=== PATIENT | female | born 1975 | race Caucasian/White ===

== ENCOUNTER → 2023-03-05 | Outpatient (CLI) | payer OTHER, SELFPAY ==
[2023-03-05 08:37] LABS: Absolute Lymphocyte Count 1.88 X10^3/uL (0.83-4.51); Absolute Neutrophil Count 2.2 X10^3/uL (2.0-7.7); Basophil# 0.05 X10^3/uL; Eosinophil# 0.26 X10^3/uL; Eosinophils% 5.3 % (0-5); Hematocrit 36.6 % (37-47); Hemoglobin 11.8 g/dL (12.0-15.0); Lymphocyte # 1.88 X10^3/ul (0.83-4.51); Lymphocyte % 38.6 % (19-41); Mean Corp Hgb Conc 32.2 g/dL (32-36); Mean Corpuscular Volume 89.9 fL (81-99); Mean Platelet Vol. 9.5 fl (6.2-12.0); Monocyte# 0.49 X10^3/uL; Monocyte% 10.1 % (0-10); NRBC Flagged by Analyzer 0 % (0-5); Neutrophil # 2.19 X10^3/uL (2.7-7.7); Platelet Count 329 K/mm3 (150-450); RBC Distribution Width CV 13.4 % (11.6-14.6); RBC Distribution Width SD 44.4 fl (35.1-43.9); Red Blood Count 4.07 M/mm3 (4.2-5.4); White Blood Count 4.9 K/mm3 (4.4-11.0)
[2023-03-05 09:09] LABS: Hemoglobin A1c 5.4 % (3.8-5.6)
[2023-03-05 09:15] LABS: Vitamin B12 370 pg/mL (211-911); Vitamin D,25 Hydroxy 35.1 ng/mL
[2023-03-05 09:20] LABS: ALB/GLOB Ratio 0.8 RATIO (0.9-2.4); AST(SGOT) 17 U/L (15-37); Alanine Aminotransfer ALT/SGPT 27 U/L (13-56); Alkaline Phosphatase 40 U/L (45-117); Anion Gap 6 (5-15); BUN 10 mg/dL (7-18); BUN/Creat Ratio 10.4 RATIO (10-20); Calcium,Total 8.7 mg/dL (8.5-10.1); Chloride 107 mmol/L (98-107); Cholesterol 199 mg/dL (200); Creatinine, Serum 0.97 mg/dL (0.55-1.02); EST Glomerular Filtration Rate 65 mL/min (>60); Est Glom Filt Rate - Afr Amer 79 mL/min (>60); Free T3 2.2 pg/mL (2.18-3.98); Globulin 3.8 g/dL (2.2-4.2); Glucose 89 mg/dL (74-106); High Density Lipoprotein 84 mg/dL; Potassium 3.8 mmol/L (3.5-5.1); Protein, Total 6.8 g/dL (6.4-8.2); Sodium Level 141 mmol/L (136-145); T4 Free Direct 0.85 ng/dL (0.76-1.46); Triglycerides 138 mg/dL; Very Low Density Lipoprotein 28 mg/dL (5-40)
[2023-03-09 11:07] LABS: Testosterone, % Free 0.52 % (0.50-2.80); Testosterone, Free 0.03 ng/dL (0.10-0.85); Testosterone, Total 6 ng/dL (4-50)
== END | disposition home or self-care (01) ==
PROVIDERS: PCP Family Medicine; Referring Provider Family Medicine; Visit Provider Family Medicine
DX: Z01.89 Encounter for other specified special examinations (principal)
CPT/HCPCS: 36415; 80053; 80061; 82306; 82607; 83036; 84402; 84403; 84439; 84443; 84481; 85025

== ENCOUNTER → 2024-01-14 | Outpatient (CLI) | payer OTHER, SELFPAY ==
--- NOTE | 2024-01-14 16:20 | BI_ITS ---
MAMMOGRAPHY - BILATERAL SCREENING REASON FOR EXAM: Female, 48 years old. Routine annual screening examination. PERTINENT HISTORY: Non-contributory. TECHNIQUE: Digital bilateral breast gold (3D mammographic acquisition) in the CC and MLO projections. 2-D mediolateral oblique (MLO) and craniocaudad (CC) views of both breasts were obtained. CAD: Full Field Digital Mammography with Computer Added Detection was performed. COMPARISON: Comparison is made with prior outside examination dated November 01, 2021. FINDINGS: Breast Composition: The breasts are heterogeneously dense, which may obscure small masses. There are no dominant masses or suspicious calcifications. No other significant abnormalities are identified. There has been no significant change since the prior study. BI/SCRN MAMM (CAD)W/GOLD BILAT IMPRESSION: Stable bilateral screening mammogram. Yearly follow-up mammogram recommended. (A) ASSESSMENT CATEGORY: BIRADS Category 1: Negative. A letter regarding these results will be sent to the patient by the facility within 30 days. Approximately 10% of breast cancers are not detected by mammography. A normal mammogram should not delay biopsy of a clinically suspicious abnormality. [id number] Electronically Signed: Feliz Bazan MD at 11:00 EDT ,
== END | disposition home or self-care (01) ==
LOC: OPBI 16:19
PROVIDERS: PCP Family Medicine; Referring Provider Family Medicine; Visit Provider Family Medicine
DX: Z12.31 Encounter for screening mammogram for malignant neoplasm of breast (principal)
CPT/HCPCS: 77063; 77067

== ENCOUNTER → 2024-05-20 | Outpatient (CLI) | payer OTHER, SELFPAY ==
[2024-05-20 09:24] LABS: Hemoglobin 11.2 g/dL (12.0-15.0); Mean Corp Hgb Conc 31.1 g/dL (32-36); Mean Corpuscular Hgb 27.4 pg (27.0-32.0); Mean Platelet Vol. 10.3 fl (6.2-12.0); Platelet Count 310 K/mm3 (150-450); RBC Distribution Width CV 13.2 % (11.6-14.6); RBC Distribution Width SD 42.2 fl (35.1-43.9); Red Blood Count 4.09 M/mm3 (4.2-5.4); White Blood Count 5.2 K/mm3 (4.4-11.0)
[2024-05-20 09:57] LABS: Hemoglobin A1c 5.7 % (3.8-5.6)
[2024-05-20 09:59] LABS: Vitamin B12 1004 pg/mL (211-911); Vitamin D,25 Hydroxy 13.7 ng/mL
[2024-05-20 11:40] LABS: ALB/GLOB Ratio 0.9 RATIO (0.9-2.4); AST(SGOT) 30 U/L (15-37); Alanine Aminotransfer ALT/SGPT 51 U/L (13-56); Albumin, Serum 3.3 g/dL (3.2-5.0); Alkaline Phosphatase 56 U/L (45-117); Anion Gap 5 (5-15); BUN 9 mg/dL (7-18); Calcium,Total 8.9 mg/dL (8.5-10.1); Chloride 106 mmol/L (98-107); Cholesterol 172 mg/dL (200); EST Glomerular Filtration Rate 71 mL/min (>60); Est Glom Filt Rate - Afr Amer 86 mL/min (>60); Estradiol 361.4 pg/mL; Ferritin 7 ng/mL (8-252); Free T3 2.5 pg/mL (2.18-3.98); Globulin 3.5 g/dL (2.2-4.2); Glucose 92 mg/dL (74-106); High Density Lipoprotein 77 mg/dL; Iron 47 ug/dL (50-170); Iron Binding Capacity,Total 402 ug/dL (250-450); Protein, Total 6.8 g/dL (6.4-8.2); Sodium Level 138 mmol/L (136-145); T4 Free Direct 0.74 ng/dL (0.76-1.46); T4 Total, Thyroxin 6.6 ug/dL (4.8-13.9); Triglycerides 81 mg/dL; Very Low Density Lipoprotein 16 mg/dL (5-40)
[2024-05-25 14:08] LABS: Testosterone, Free 0.63 ng/dL (0.10-0.85); Testosterone, Total 33 ng/dL (4-50)
== END | disposition home or self-care (01) ==
LOC: LAB 08:17
PROVIDERS: PCP Family Medicine; Referring Provider Family Medicine; Visit Provider Family Medicine
DX: N95.9 Unspecified menopausal and perimenopausal disorder (principal)

== ENCOUNTER → 2024-08-30 | Outpatient (CLI) | payer OTHER, SELFPAY ==
[2024-09-01 11:08] LABS: HPV APTIMA, High Risk Negative (Negative)
== END | disposition home or self-care (01) ==
LOC: LABSPEC 08:53
PROVIDERS: PCP Family Medicine; Visit Provider Family Medicine
DX: Z12.4 Encounter for screening for malignant neoplasm of cervix (principal)
CPT/HCPCS: 87624; 88175; G0145

== ENCOUNTER → 2025-04-28 | Outpatient (CLI) | payer OTHER, SELFPAY ==
--- NOTE | 2025-04-28 11:58 | BI_ITS ---
EXAM: SCRN MAMM (CAD)W/GOLD BILAT DATE: 04/28/2025 CLINICAL HISTORY: F, Age 49 y/o , SCREEN TECHNIQUE: Procedure Code: [id number] Modality: MG Procedure: SCRN MAMM (CAD)W/GOLD BILAT COMPARISON: Prior exam(s) were compared FINDINGS: TISSUE DENSITY: The breasts are heterogeneously dense, which may obscure small masses. Bilateral Breast Mammographic Findings: No significant masses, calcifications or other abnormalities are identified. BI/SCRN MAMM (CAD)W/GOLD BILAT IMPRESSION: No mammographic evidence of malignancy. OVERALL FINAL ASSESSMENT BI-RADS 1: NEGATIVE. RECOMMENDATION: Routine annual follow-up in 1 Year Additional Recommendation none A letter with findings and recommendations will be mailed to the patient. Reading Location: [id number]
--- OUTSIDE RECORDS SUMMARY | 2025-04-28 12:11 | XMS RPT_ITS | CCD ---
Author Organization [facility] Care Team Providers Care Is Consultant Name Role Phone Marj Grier Ellen Primary Care Provider Labor, Richelle Primary Care Unavailable Labor, Richelle Attending Unavailable Labor, Richelle Referring Unavailable Labor, Richelle Primary Care Unavailable Labor, Richelle Attending Unavailable Labor, Richelle Referring Unavailable Vane, Brooke Primary Care Unavailable Vane, Brooke Attending Unavailable Allergies Allergy Classification Reported Allergen(s) Allergy Type Date of Onset Reaction(s) Facility (3 sources) Aspirin Drug Allergy 10-17-2019 Shortness of Breath [facility] (1 source) Penicillins Drug Allergy 10-17-2019 Shortness of Breath [facility] (2 sources) Penicillins Drug Allergy 10-17-2019 Shortness of Breath [facility] Medications Completed/Discontinued Medications Medication Drug Class(es) Dates Sig (Normalized) Sig (Original) citalopram 20 mg oral tablet (3 sources) Serotonin Reuptake Inhibitor Start: 08-22-2019 citalopram (CELEXA) 20 mg tablet drospirenone / Ethinyl Estradiol (3 sources) Progestin, Estrogen Start: 08-09-2019 GIGARETH, 28, 3-0.02 mg per tablet Problems Problem Classification Problem Date Documented Date Episodic/Chronic Menopausal disorders (1 source) Unspecified menopausal and perimenopausal disorder; Translations: [Unspecified menopausal and perimenopausal disorder] Onset: 06-08-2024 Chronic Other screening for suspected conditions (not mental disorders or infectious disease) (2 sources) Encounter for screening for malignant neoplasm of cervix; Translations: [Encounter for screening mammogram for malignant neoplasm of breast] Onset: 02-03-2024 Episodic Results Test Name Value Interpretation Reference Range Facil ity PAP IG HPV APTIMA 16/18,45on 09-01-2024 ADEQ Comment Normal . [facility] Comment on above: Order Comment: Speci men Comment: [id number] Comment: No. of containers..01 ThinPrep Vial Result Comment: Sati sfactory for evaluation. Endocervical and/or squamous metaplastic cells (endocervical component) are present. Performed By: #### L 506.0400, L501.9520, L506.1000, L3300.1750, L100.0500, L500.4100, L501.9985, L501.9310, L500.4050, L501.97535, L503.6075, L3100.5060, L3100.5310, L503.6150, L503.0105, L503.6550 #### [facility] [address] [place], [address] COMM [address] Normal [address] [facility] Comment on above: Order Comment: Speci men Comment: [id number] Comment: No. of containers..01 ThinPrep Vial Performed By: #### L 506.0400, L501.9520, L506.1000, L3300.1750, L100.0500, L500.4100, L501.9985, L501.9310, L500.4050, L501.27225, L503.6075, L3100.5060, L3100.5310, L503.6150, L503.0105, L503.6550 #### [facility] [address] [place], [address] COMMENT Comment Normal . [facility] Comment on above: Order Comment: Speci men Comment: [id number] Comment: No. of containers..01 ThinPrep Vial Result Comment: This liquid based ThinPrep(R) pap test was screened with the use of an image guided system. Performed By: #### L 506.0400, L501.9520, L506.1000, L3300.1750, L100.0500, L500.4100, L501.9985, L501.9310, L500.4050, L501.28544, L503.6075, L3100.5060, L3100.5310, L503.6150, L503.0105, L503.6550 #### [facility] [address] [place], [place], [id number] DIAG Comment Normal . [facility] Comment on above: Order Comment: Speci men Comment: [id number] Comment: No. of containers..01 ThinPrep Vial Result Comment: NEGA TIVE FOR INTRAEPITHELIAL LESION OR MALIGNANCY. FUNGAL ORGANISMS MORPHOLOGICALLY CONSISTENT WITH SETH SPECIES ARE PRESENT. Performed By: #### L 506.0400, L501.9520, L506.1000, L3300.1750, L100.0500, L500.4100, L501.9985, L501.9310, L500.4050, L501.35701, L503.6075, L3100.5060, L3100.5310, L503.6150, L503.0105, L503.6550 #### [facility] [address] [place], [place], [id number] HPV APTIMA, HR Negative Normal Negative [facility] Comment on above: Order Comment: Speci men Comment: [id number] Comment: No. of containers..01 ThinPrep Vial Result Comment: This nucleic acid amplification test detects fourteen high- risk HPV types (16,18,31,33,35,39,45,51,52,56,58,59,66,68) without differentiation. Performed By: #### L 506.0400, L501.9520, L506.1000, L3300.1750, L100.0500, L500.4100, L501.9985, L501.9310, L500.4050, L501.49087, L503.6075, L3100.5060, L3100.5310, L503.6150, L503.0105, L503.6550 #### [facility] [address] [place], [place], [id number] HPV Noa Rfx Comment Normal . [facility] Comment on above: Order Comment: Speci men Comment: [id number] Comment: No. of containers..01 ThinPrep Vial Result Comment: Crit melany not met, HPV Genotype not performed. Performed at: WB - [facility] [id number] Business Management Specialist: Sarai Luque MD, Phone: [phone] Performed at: =G - [facility] [address] [id number] Business Management Specialist: Sarai Luque MD, Phone: [phone] Performed By: #### L 506.0400, L501.9520, L506.1000, L3300.1750, L100.0500, L500.4100, L501.9985, L501.9310, L500.4050, L501.88775, L503.6075, L3100.5060, L3100.5310, L503.6150, L503.0105, L503.6550 #### [facility] [address] [place], [place], [id number] PAPSMR Comment Normal . [facility] Comment on above: Order Comment: Speci men Comment: [id number] Comment: No. of containers..01 ThinPrep Vial Result Comment: The Pap smear is a screening test designed to aid in the detection of premalignant and malignant conditions of the uterine cervix. It is not a diagnostic procedure and should not be used as the sole means of detecting cervical cancer. Both false-positive and false-negative reports do occur. Performed By: #### L 506.0400, L501.9520, L506.1000, L3300.1750, L100.0500, L500.4100, L501.9985, L501.9310, L500.4050, L501.65990, L503.6075, L3100.5060, L3100.5310, L503.6150, L503.0105, L503.6550 #### [facility] [address] [place], [place], [id number] PERFORM Comment Normal . [facility] Comment on above: Order Comment: Speci men Comment: [id number] Comment: No. of containers..01 ThinPrep Vial Result Comment: Candy Hilliard, Process Lead (ASCP) Performed By: #### L 506.0400, L501.9520, L506.1000, L3300.1750, L100.0500, L500.4100, L501.9985, L501.9310, L500.4050, L501.91955, L503.6075, L3100.5060, L3100.5310, L503.6150, L503.0105, L503.6550 #### [facility] [address] [place], [address] Sex Hormone-binding Globulin on 05-25-2024 SHBG 105.0 nmol/L Normal 24.6-122.0 [facility] Comment on above: Order Comment: YCMP WAS WHAT WAS ORDERED NOT BMP Result Comment: Perf ormed at: - [facility] [id number] Business Management Specialist: Chay Morris PhD, Phone: [phone] Performed at: - [facility] [id number] Business Management Specialist: Dru Lipscomb MD, Phone: [phone] Performed By: #### L 506.0400, L501.9520, L506.1000, L3300.1750, L100.0500, L500.4100, L501.9985, L501.9310, L500.4050, L501.59158, L503.6075, L3100.5060, L3100.5310, L503.6150, L503.0105, L503.6550 #### [facility] [address] [place], [address] Testosterone, Total / Freeon 05-25-2024 TESTOSTER,FREE 0.63 ng/dL Normal 0.10-0.85 [facility] Comment on above: Order Comment: YCMP WAS WHAT WAS ORDERED NOT BMP Performed By: #### L 506.0400, L501.9520, L506.1000, L3300.1750, L100.0500, L500.4100, L501.9985, L501.9310, L500.4050, L501.53362, L503.6075, L3100.5060, L3100.5310, L503.6150, L503.0105, L503.6550 #### [facility] [address] [facility] [place], [place], [phone] (353) TESTOSTER,TOTAL 33 ng/dL Normal 4-50 [facility] Comment on above: Order Comment: YCMP WAS WHAT WAS ORDERED NOT BMP Performed By: #### L 506.0400, L501.9520, L506.1000, L3300.1750, L100.0500, L500.4100, L501.9985, L501.9310, L500.4050, L501.90014, L503.6075, L3100.5060, L3100.5310, L503.6150, L503.0105, L503.6550 #### [facility] [address] [facility] [place], [place], [phone] (638) TESTOSTERONE,%F 1.90 Normal 0.50-2.80 [facility] Comment on above: Order Comment: YCMP WAS WHAT WAS ORDERED NOT BMP Performed By: #### L 506.0400, L501.9520, L506.1000, L3300.1750, L100.0500, L500.4100, L501.9985, L501.9310, L500.4050, L501.57091, L503.6075, L3100.5060, L3100.5310, L503.6150, L503.0105, L503.6550 #### [facility] [address] [facility] [place], [place], [id number] CBC-Complete [facility] Erythrocyte distribution width (RBC) [Ratio] 13.2 % Normal 11.6-14.6 [facility] Comment on above: Performed By: #### L 506.0400, L501.9520, L506.1000, L3300.1750, L100.0500, L500.4100, L501.9985, L501.9310, L500.4050, L501.07247, L503.6075, L3100.5060, L3100.5310, L503.6150, L503.0105, L503.6550 #### [facility] [address] [place], [place], [id number] Hematocrit (Bld) [Volume fraction] 36.0 % Low 37-47 [facility] Comment on above: Performed By: #### L 506.0400, L501.9520, L506.1000, L3300.1750, L100.0500, L500.4100, L501.9985, L501.9310, L500.4050, L501.54862, L503.6075, L3100.5060, L3100.5310, L503.6150, L503.0105, L503.6550 #### [facility] [address] [place], [place], [phone] Hemoglobin (Bld) [Mass/Vol] 11.2 g/dL Low 12.0-15.0 [facility] Comment on above: Performed By: #### L 506.0400, L501.9520, L506.1000, L3300.1750, L100.0500, L500.4100, L501.9985, L501.9310, L500.4050, L501.36469, L503.6075, L3100.5060, L3100.5310, L503.6150, L503.0105, L503.6550 #### [facility] [address] [facility]. [place], [place], [phone] MCH (RBC) [Entitic mass] 27.4 pg Normal 27.0-32.0 [facility] Comment on above: Performed By: #### L 506.0400, L501.9520, L506.1000, L3300.1750, L100.0500, L500.4100, L501.9985, L501.9310, L500.4050, L501.08842, L503.6075, L3100.5060, L3100.5310, L503.6150, L503.0105, L503.6550 #### [facility] [address] [place], [address] MCHC (RBC) [Mass/Vol] 31.1 g/dL Low 32-36 [facility] Comment on above: Performed By: #### L 506.0400, L501.9520, L506.1000, L3300.1750, L100.0500, L500.4100, L501.9985, L501.9310, L500.4050, L501.87292, L503.6075, L3100.5060, L3100.5310, L503.6150, L503.0105, L503.6550 #### [facility] [address] [place], [place], [phone] MCV (RBC) [Entitic vol] 88.0 fL Normal 81-99 [facility] Comment on above: Performed By: #### L 506.0400, L501.9520, L506.1000, L3300.1750, L100.0500, L500.4100, L501.9985, L501.9310, L500.4050, L501.63598, L503.6075, L3100.5060, L3100.5310, L503.6150, L503.0105, L503.6550 #### [facility] [address] [place], [address] Platelet mean volume (Bld) [Entitic vol] 10.3 fL Normal 6.2-12.0 [facility] Comment on above: Performed By: #### L 506.0400, L501.9520, L506.1000, L3300.1750, L100.0500, L500.4100, L501.9985, L501.9310, L500.4050, L501.16920, L503.6075, L3100.5060, L3100.5310, L503.6150, L503.0105, L503.6550 #### [facility] [address] [place], [address] Platelets (Bld) [#/Vol] 310 10*3/uL Normal 150-450 [facility] Comment on above: Performed By: #### L 506.0400, L501.9520, L506.1000, L3300.1750, L100.0500, L500.4100, L501.9985, L501.9310, L500.4050, L501.36802, L503.6075, L3100.5060, L3100.5310, L503.6150, L503.0105, L503.6550 #### [facility] [address] [place], [address] RBC (Bld) [#/Vol] 4.09 10*6/uL Low 4.2-5.4 [facility] Comment on above: Performed By: #### L 506.0400, L501.9520, L506.1000, L3300.1750, L100.0500, L500.4100, L501.9985, L501.9310, L500.4050, L501.38587, L503.6075, L3100.5060, L3100.5310, L503.6150, L503.0105, L503.6550 #### [facility] [address] [place], [address] RDW SD 42.2 fl Normal 35.1-43.9 [facility] Comment on above: Performed By: #### L 506.0400, L501.9520, L506.1000, L3300.1750, L100.0500, L500.4100, L501.9985, L501.9310, L500.4050, L501.03887, L503.6075, L3100.5060, L3100.5310, L503.6150, L503.0105, L503.6550 #### [facility] [address] [place], [place], [phone] WBC (Bld) [#/Vol] 5.2 10*3/uL Normal 4.4-11.0 [facility] Comment on above: Performed By: #### L 506.0400, L501.9520, L506.1000, L3300.1750, L100.0500, L500.4100, L501.9985, L501.9310, L500.4050, L501.08358, L503.6075, L3100.5060, L3100.5310, L503.6150, L503.0105, L503.6550 #### [facility] [address] [facility] [place], [address] Comprehensive Metabolic Prof ndon 05-20-2024 Albumin [Mass/Vol] 3.3 g/dL Normal 3.2-5.0 [facility] Comment on above: Order Comment: Y CMP WAS WHAT WAS ORDERED NOT BMP Performed By: #### L 506.0400, L501.9520, L506.1000, L3300.1750, L100.0500, L500.4100, L501.9985, L501.9310, L500.4050, L501.64662, L503.6075, L3100.5060, L3100.5310, L503.6150, L503.0105, L503.6550 #### [facility] [address] [facility] [place], [address] Albumin/Globulin [Mass ratio] 0.9 {ratio} Normal 0.9-2.4 [facility] Comment on above: Order Comment: Y CMP WAS WHAT WAS ORDERED NOT BMP Performed By: #### L 506.0400, L501.9520, L506.1000, L3300.1750, L100.0500, L500.4100, L501.9985, L501.9310, L500.4050, L501.15504, L503.6075, L3100.5060, L3100.5310, L503.6150, L503.0105, L503.6550 #### [facility] [address] [facility] [place], [place], [id number] ALK P 56 U/L Normal 45-117 [facility] Comment on above: Order Comment: Y CMP WAS WHAT WAS ORDERED NOT BMP Performed By: #### L 506.0400, L501.9520, L506.1000, L3300.1750, L100.0500, L500.4100, L501.9985, L501.9310, L500.4050, L501.86550, L503.6075, L3100.5060, L3100.5310, L503.6150, L503.0105, L503.6550 #### [facility] [address] [facility]. [place], [place], [id number] ALT [Catalytic activity/Vol] 51 U/L Normal 13-56 [facility] Comment on above: Order Comment: Y CMP WAS WHAT WAS ORDERED NOT BMP Performed By: #### L 506.0400, L501.9520, L506.1000, L3300.1750, L100.0500, L500.4100, L501.9985, L501.9310, L500.4050, L501.45478, L503.6075, L3100.5060, L3100.5310, L503.6150, L503.0105, L503.6550 #### [facility] [address] [facility]. [place], [place], [id number] AST [Catalytic activity/Vol] 30 U/L Normal 15-37 [facility] Comment on above: Order Comment: Y CMP WAS WHAT WAS ORDERED NOT BMP Performed By: #### L 506.0400, L501.9520, L506.1000, L3300.1750, L100.0500, L500.4100, L501.9985, L501.9310, L500.4050, L501.98246, L503.6075, L3100.5060, L3100.5310, L503.6150, L503.0105, L503.6550 #### [facility] [address] [place], [place], [phone] Bilirubin [Mass/Vol] 0.30 mg/dL Normal 0.20-1.00 [facility] Comment on above: Order Comment: Y CMP WAS WHAT WAS ORDERED NOT BMP Result Comment: For patients on eltrombopag therapy, use of Dimension [place] TBIL is not recommended. Performed By: #### L 506.0400, L501.9520, L506.1000, L3300.1750, L100.0500, L500.4100, L501.9985, L501.9310, L500.4050, L501.61015, L503.6075, L3100.5060, L3100.5310, L503.6150, L503.0105, L503.6550 #### [facility] [address] [place], [address] BUN/CRE 10.0 RATIO Normal 10-20 [facility] Comment on above: Order Comment: Y CMP WAS WHAT WAS ORDERED NOT BMP Performed By: #### L 506.0400, L501.9520, L506.1000, L3300.1750, L100.0500, L500.4100, L501.9985, L501.9310, L500.4050, L501.11275, L503.6075, L3100.5060, L3100.5310, L503.6150, L503.0105, L503.6550 #### [facility] [address] [place], [place], [phone] CA,Total 8.9 mg/dL Normal 8.5-10.1 [facility] Comment on above: Order Comment: Y CMP WAS WHAT WAS ORDERED NOT BMP Performed By: #### L 506.0400, L501.9520, L506.1000, L3300.1750, L100.0500, L500.4100, L501.9985, L501.9310, L500.4050, L501.52947, L503.6075, L3100.5060, L3100.5310, L503.6150, L503.0105, L503.6550 #### [facility] [address] [place], [place], [phone] (254) Chloride [Moles/Vol] 106 mmol/L Normal 98-107 [facility] Comment on above: Order Comment: Y CMP WAS WHAT WAS ORDERED NOT BMP Performed By: #### L 506.0400, L501.9520, L506.1000, L3300.1750, L100.0500, L500.4100, L501.9985, L501.9310, L500.4050, L501.63596, L503.6075, L3100.5060, L3100.5310, L503.6150, L503.0105, L503.6550 #### [facility] [address] [place], [place], [phone] (770) CO2 [Moles/Vol] 27.0 mmol/L Normal 21.0-32.0 [facility] Comment on above: Order Comment: Y CMP WAS WHAT WAS ORDERED NOT BMP Performed By: #### L 506.0400, L501.9520, L506.1000, L3300.1750, L100.0500, L500.4100, L501.9985, L501.9310, L500.4050, L501.96494, L503.6075, L3100.5060, L3100.5310, L503.6150, L503.0105, L503.6550 #### [facility] [address] [place], [place], [id number] Creatinine [Mass/Vol] 0.90 mg/dL Normal 0.55-1.02 [facility] Comment on above: Order Comment: Y CMP WAS WHAT WAS ORDERED NOT BMP Result Comment: The validity of the calculated GFR GFRAA in patients over 70 years has not been determined. Clinical correlation is essential. Performed By: #### L 506.0400, L501.9520, L506.1000, L3300.1750, L100.0500, L500.4100, L501.9985, L501.9310, L500.4050, L501.83193, L503.6075, L3100.5060, L3100.5310, L503.6150, L503.0105, L503.6550 #### [facility] [address] [place], [address] EST GFR - AA 86 mL/min Normal >60 [facility] Comment on above: Order Comment: Y CMP WAS WHAT WAS ORDERED NOT BMP Result Comment: Afri can Rwandan GFR Calc Performed By: #### L 506.0400, L501.9520, L506.1000, L3300.1750, L100.0500, L500.4100, L501.9985, L501.9310, L500.4050, L501.78729, L503.6075, L3100.5060, L3100.5310, L503.6150, L503.0105, L503.6550 #### [facility] [address] [place], [place], [id number] GAP 5 Normal 5-15 [facility] Comment on above: Order Comment: Y CMP WAS WHAT WAS ORDERED NOT BMP Performed By: #### L 506.0400, L501.9520, L506.1000, L3300.1750, L100.0500, L500.4100, L501.9985, L501.9310, L500.4050, L501.66428, L503.6075, L3100.5060, L3100.5310, L503.6150, L503.0105, L503.6550 #### [facility] [address] [place], [address] GFR/1.73 sq M.predicted among non-blacks MDRD (S/P/Bld) [Vol rate/Area] 71 mL/min/{1.73_m2} Normal >60 [facility] Comment on above: Order Comment: Y CMP WAS WHAT WAS ORDERED NOT BMP Result Comment: Non- GFR Calc Performed By: #### L 506.0400, L501.9520, L506.1000, L3300.1750, L100.0500, L500.4100, L501.9985, L501.9310, L500.4050, L501.42465, L503.6075, L3100.5060, L3100.5310, L503.6150, L503.0105, L503.6550 #### [facility] [address] [place], [address] Globulin (S) [Mass/Vol] 3.5 g/dL Normal 2.2-4.2 [facility] Comment on above: Order Comment: Y CMP WAS WHAT WAS ORDERED NOT BMP Performed By: #### L 506.0400, L501.9520, L506.1000, L3300.1750, L100.0500, L500.4100, L501.9985, L501.9310, L500.4050, L501.83835, L503.6075, L3100.5060, L3100.5310, L503.6150, L503.0105, L503.6550 #### [facility] [address] [place], [address] Glucose [Mass/Vol] 92 mg/dL Normal 74-106 [facility] Comment on above: Order Comment: Y CMP WAS WHAT WAS ORDERED NOT BMP Performed By: #### L 506.0400, L501.9520, L506.1000, L3300.1750, L100.0500, L500.4100, L501.9985, L501.9310, L500.4050, L501.51713, L503.6075, L3100.5060, L3100.5310, L503.6150, L503.0105, L503.6550 #### [facility] [address] [place], [address] Potassium [Moles/Vol] 4.0 mmol/L Normal 3.5-5.1 [facility] Comment on above: Order Comment: Y CMP WAS WHAT WAS ORDERED NOT BMP Performed By: #### L 506.0400, L501.9520, L506.1000, L3300.1750, L100.0500, L500.4100, L501.9985, L501.9310, L500.4050, L501.60914, L503.6075, L3100.5060, L3100.5310, L503.6150, L503.0105, L503.6550 #### [facility] [address] [place], [address] Sodium [Moles/Vol] 138 mmol/L Normal 136-145 [facility] Comment on above: Order Comment: Y CMP WAS WHAT WAS ORDERED NOT BMP Performed By: #### L 506.0400, L501.9520, L506.1000, L3300.1750, L100.0500, L500.4100, L501.9985, L501.9310, L500.4050, L501.40486, L503.6075, L3100.5060, L3100.5310, L503.6150, L503.0105, L503.6550 #### [facility] [address] [place], [address] T PROT 6.8 g/dL Normal 6.4-8.2 [facility] Comment on above: Order Comment: Y CMP WAS WHAT WAS ORDERED NOT BMP Performed By: #### L 506.0400, L501.9520, L506.1000, L3300.1750, L100.0500, L500.4100, L501.9985, L501.9310, L500.4050, L501.28811, L503.6075, L3100.5060, L3100.5310, L503.6150, L503.0105, L503.6550 #### [facility] [address] [place], [address] Urea nitrogen [Mass/Vol] 9 mg/dL Normal 7-18 [facility] Comment on above: Order Comment: Y CMP WAS WHAT WAS ORDERED NOT BMP Performed By: #### L 506.0400, L501.9520, L506.1000, L3300.1750, L100.0500, L500.4100, L501.9985, L501.9310, L500.4050, L501.44832, L503.6075, L3100.5060, L3100.5310, L503.6150, L503.0105, L503.6550 #### [facility] [address] [place], [address] Estradiolon 05-20-2024 ESTRADIOL 361.4 pg/mL Normal [facility] Comment on above: Order Comment: Y CMP WAS WHAT WAS ORDERED NOT BMP Result Comment: NORM AL REFERENCE RANGES FEMALE FOLLICULAR 21.4 - 164.8 pg/mL MID-CYCLE PEAK 49.9 - 367.2 pg/mL LUTEAL 40.2 - 259.0 pg/mL POST-MENOPAUSAL ON MHT <11.0 - 462.1 pg/mL NOT ON MHT <11.0 - 58.3 pg/mL MALE <11.0 - 52.5 pg/mL NOTE: [facility] HAS CONFIRMED THE DRUG FULVETRANT (FASLODEX) MAY CAUSE FALSELY ELEVATED ESTRADIOL RESULTS WHEN USING THIS TEST METHOD. IF PATIENT IS TAKING FULVESTRANT AN ALTERNATIVE METHOD SHOULD BE USED TO DETERMINE ESTRADIOL CONCENTRATION. Performed By: #### L 506.0400, L501.9520, L506.1000, L3300.1750, L100.0500, L500.4100, L501.9985, L501.9310, L500.4050, L501.93325, L503.6075, L3100.5060, L3100.5310, L503.6150, L503.0105, L503.6550 #### [facility] [address] [facility] [place], [address] Ferritinon 05-20-2024 Ferritin [Mass/Vol] 7 ng/mL Low 8-252 [facility] Comment on above: Order Comment: YCMP WAS WHAT WAS ORDERED NOT BMP Performed By: #### L 506.0400, L501.9520, L506.1000, L3300.1750, L100.0500, L500.4100, L501.9985, L501.9310, L500.4050, L501.34203, L503.6075, L3100.5060, L3100.5310, L503.6150, L503.0105, L503.6550 #### [facility] [address] [facility] [place], [address] Free T3on 05-20-2024 Free T3 [Mass/Vol] 2.5 pg/mL Normal 2.18-3.98 [facility] Comment on above: Order Comment: Y CMP WAS WHAT WAS ORDERED NOT BMP Performed By: #### L 506.0400, L501.9520, L506.1000, L3300.1750, L100.0500, L500.4100, L501.9985, L501.9310, L500.4050, L501.79474, L503.6075, L3100.5060, L3100.5310, L503.6150, L503.0105, L503.6550 #### [facility] [address] [place], [address] Hemoglobin A1con 05-20-2024 HbA1c (Bld) [Mass fraction] 5.7 % High 3.8-5.6 [facility] Comment on above: Result Comment: Norm al < 5.7 % Prediabetic 5.7 - 6.4 % Diabetic >or= 6.5 % Please note range changes. Performed By: #### L 506.0400, L501.9520, L506.1000, L3300.1750, L100.0500, L500.4100, L501.9985, L501.9310, L500.4050, L501.05970, L503.6075, L3100.5060, L3100.5310, L503.6150, L503.0105, L503.6550 #### [facility] [address] [place], [place], [id number] Ironon 05-20-2024 Iron [Mass/Vol] 47 ug/dL Low 50-170 [facility] Comment on above: Order Comment: YCMP WAS WHAT WAS ORDERED NOT BMP Performed By: #### L 506.0400, L501.9520, L506.1000, L3300.1750, L100.0500, L500.4100, L501.9985, L501.9310, L500.4050, L501.30647, L503.6075, L3100.5060, L3100.5310, L503.6150, L503.0105, L503.6550 #### [facility] [address] [place], [address] Iron Binding Capacity,Totalo n 05-20-2024 TIBC 402 ug/dL Normal 250-450 [facility] Comment on above: Order Comment: YCMP WAS WHAT WAS ORDERED NOT BMP Performed By: #### L 506.0400, L501.9520, L506.1000, L3300.1750, L100.0500, L500.4100, L501.9985, L501.9310, L500.4050, L501.13228, L503.6075, L3100.5060, L3100.5310, L503.6150, L503.0105, L503.6550 #### [facility] [address] [place], [address] Lipid Profileon 05-20-2024 Cholesterol [Mass/Vol] 172 mg/dL Normal 200 [facility] Comment on above: Order Comment: Y CMP WAS WHAT WAS ORDERED NOT BMP Result Comment: <200 mg/dL Desirable 200-240 mg/dL Borderline >240 mg/dL High Risk Performed By: #### L 506.0400, L501.9520, L506.1000, L3300.1750, L100.0500, L500.4100, L501.9985, L501.9310, L500.4050, L501.75286, L503.6075, L3100.5060, L3100.5310, L503.6150, L503.0105, L503.6550 #### [facility] [address] [place], [address] (187) Cholesterol in HDL [Mass/Vol] 77 mg/dL Normal [facility] Comment on above: Order Comment: Y CMP WAS WHAT WAS ORDERED NOT BMP Result Comment: The drugs N-Acetylcysteine and Metamizole may falsely depress this assay. Reference Range HDL <40 mg/dL Low HDL Cholesterol HDL >or= 60 mg/dL High HDL Cholesterol Performed By: #### L 506.0400, L501.9520, L506.1000, L3300.1750, L100.0500, L500.4100, L501.9985, L501.9310, L500.4050, L501.73924, L503.6075, L3100.5060, L3100.5310, L503.6150, L503.0105, L503.6550 #### [facility] [address] [place], [address] (821 Cholesterol in LDL [Mass/Vol] 79 mg/dL Normal 0-130 [facility] Comment on above: Order Comment: Y CMP WAS WHAT WAS ORDERED NOT BMP Performed By: #### L 506.0400, L501.9520, L506.1000, L3300.1750, L100.0500, L500.4100, L501.9985, L501.9310, L500.4050, L501.50008, L503.6075, L3100.5060, L3100.5310, L503.6150, L503.0105, L503.6550 #### [facility] [address] [place], [place], [id number] Cholesterol in VLDL [Mass/Vol] 16 mg/dL Normal 5-40 [facility] Comment on above: Order Comment: Y CMP WAS WHAT WAS ORDERED NOT BMP Performed By: #### L 506.0400, L501.9520, L506.1000, L3300.1750, L100.0500, L500.4100, L501.9985, L501.9310, L500.4050, L501.34331, L503.6075, L3100.5060, L3100.5310, L503.6150, L503.0105, L503.6550 #### [facility] [address] [place], [address] Triglyceride [Mass/Vol] 81 mg/dL Normal [facility] Comment on above: Order Comment: Y CMP WAS WHAT WAS ORDERED NOT BMP Result Comment: The drugs N-Acetylcysteine and Metamizole may falsely depress this assay. Serum Triglycerides Reference Interval Normal <150 mg/dL Borderline high 150 - 199 mg/dL High 200 - 499 mg/dL Very High > or = 500 mg/dL Performed By: #### L 506.0400, L501.9520, L506.1000, L3300.1750, L100.0500, L500.4100, L501.9985, L501.9310, L500.4050, L501.53531, L503.6075, L3100.5060, L3100.5310, L503.6150, L503.0105, L503.6550 #### [facility] [address] [place], [address] T4 Free Directon 05-20-2024 T4 FREE DIRECT 0.74 ng/dL Low 0.76-1.46 [facility] Comment on above: Order Comment: YCMP WAS WHAT WAS ORDERED NOT BMP Performed By: #### L 506.0400, L501.9520, L506.1000, L3300.1750, L100.0500, L500.4100, L501.9985, L501.9310, L500.4050, L501.37807, L503.6075, L3100.5060, L3100.5310, L503.6150, L503.0105, L503.6550 #### [facility] [address] [place], [place], [id number] T4 Total, Thyroxinon 025 T4 [Mass/Vol] 6.6 ug/dL Normal 4.8-13.9 [facility] Comment on above: Order Comment: Y CMP WAS WHAT WAS ORDERED NOT BMP Performed By: #### L 506.0400, L501.9520, L506.1000, L3300.1750, L100.0500, L500.4100, L501.9985, L501.9310, L500.4050, L501.78521, L503.6075, L3100.5060, L3100.5310, L503.6150, L503.0105, L503.6550 #### [facility] [address] [place], [place], [address] Thyroid Stim Hormone (TSH)on 05-20-2024 TSH 2.220 uIU/mL Normal 0.358-3.740 [facility] Comment on above: Order Comment: YCMP WAS WHAT WAS ORDERED NOT BMP Performed By: #### L 506.0400, L501.9520, L506.1000, L3300.1750, L100.0500, L500.4100, L501.9985, L501.9310, L500.4050, L501.91281, L503.6075, L3100.5060, L3100.5310, L503.6150, L503.0105, L503.6550 #### [facility] [address] [place], [place], [id number] Vitamin B12on 05-20-2024 Cobalamin (Vitamin B12) [Mass/Vol] 1004 pg/mL High 211-911 [facility] Comment on above: Performed By: #### L 506.0400, L501.9520, L506.1000, L3300.1750, L100.0500, L500.4100, L501.9985, L501.9310, L500.4050, L501.10329, L503.6075, L3100.5060, L3100.5310, L503.6150, L503.0105, L503.6550 #### [facility] [address] [place], [address] Vitamin D,25 Hydroxyon 05-20 Vitamin D 25-OH 13.7 ng/mL Normal [facility] Comment on above: Result Comment: Aruna min D 25(OH) Status Range Deficiency <20 ng/mL (50nmol/L) Insufficiency 20 - 30 ng/mL (50 - 75 nmol/L) Sufficiency 30 - 100 ng/mL (75 - 250 nmol/L) Toxicity >100 ng/mL (>250 nmol/L) Performed By: #### L 506.0400, L501.9520, L506.1000, L3300.1750, L100.0500, L500.4100, L501.9985, L501.9310, L500.4050, L501.82430, L503.6075, L3100.5060, L3100.5310, L503.6150, L503.0105, L503.6550 #### [facility] [address] [place], [address] SCRN MAMM (CAD)W/GOLD BILATo n 01-14-2024 SCRN MAMM (CAD)W/GOLD BILAT [facility] [address] [place] [id number] SCRN MAMM (CAD)W/GOLDLesa CHIN MR#: [id number] Acct: [id number] Name: THEAJOCELYNE Rep #: [id number] : 1975 F 48 From: Feliz scruggs MD PCP: Dr. Richelle Laurent DO Status: [facility] Study: SCRN MAMM (CAD)W/GOLD BILAT Date of Exam: 01/02 06/27 Exam# [id number] Ordering Dr: Richelle Laurent DO [id number] MAMMOGRAPHY - BILATERAL SCREENING REASON FOR EXAM: Female, 48 years old. Routine annual screening examination. PERTINENT HISTORY: Non-contributory. TECHNIQUE: Digital bilateral breast gold (3D mammographic acquisition) in the CC and MLO projections. 2-D mediolateral oblique (MLO) and craniocaudad (CC) views of both breasts were obtained. CAD: Full Field Digital Mammography with Computer Added Detection was performed. COMPARISON: Comparison is made with prior outside examination dated November 01, 2021. FINDINGS: Breast Composition: The breasts are heterogeneously dense, which may obscure small masses. There are no dominant masses or suspicious calcifications. No other significant abnormalities are identified. There has been no significant change since the prior study. BI/SCRN MAMM (CAD)W/GOLD BILAT IMPRESSION: Stable bilateral screening mammogram. Yearly follow-up mammogram recommended. (A) ASSESSMENT CATEGORY: BIRADS Category 1: Negative. A letter regarding these results will be sent to the patient by the facility within 30 days. Approximately 10% of breast cancers are not detected by mammography. A normal mammogram should not delay biopsy of a clinically suspicious abnormality. [id number] Electronically Signed: Feliz Bazan MD at 11:00 EDT , CC: Dr. Richelle Laurent DO Molecular Physicist: Signed Normal [facility] CNCKimo [facility]-01-2021 [facility] H[facility]: [id number] Author: Mammography Coordinator Service: ? Author Type: Physician Type: Letter Filed: 11/04/2021 11:35 PM Note Text: [facility] [address] [place] [address] November 01, 2021 PID: [id number] Jocelyne Villagomez [address] [place] [address] Dear Ms. Villagomez, We are pleased to inform you that the results of your recent breast imaging exam on 11/01/2021 are normal. Early detection of cancer is very important. We also understand recommendations regarding breast cancer screening are controversial. Please discuss with your primary care provider which strategy is best for you and whether a mammogram is right for you. Your imaging studies and report will be kept on file at [facility] as part of your permanent medical record and are available for your continuing care. Thank you for allowing us to help in meeting your health care needs. Sincerely, Dr. Hernández Interpreting Radiologist [facility] (Normal over 40) Normal [facility] SCREENINGon 11-01-2021 [facility] SCREENING * * *Final Report* * * DATE OF EXAM: Nov 01 2021 10:51AM [facility] 0581 - [facility] SCREENING / PROCEDURE REASON: screening * * * * Physician Interpretation * * * * #[id number] - [facility] SCREENING BILATERAL DIGITAL SCREENING MAMMOGRAM WITH CAD: 11/01/2021 HISTORY: Screening /Screening Mammogram-Patient reports NO symptoms. RESULT: TECHNIQUE: The study was acquired using full field digital technology and interpreted from soft copy. Current study was also evaluated with a Computer Aided Detection (CAD). Comparison is made to exams dated: 03/23/2020 mammogram, 09/10/2018 mammogram - [facility], and 07/18/2016 mammogram - [facility]. The tissue of both breasts is heterogeneously dense. This may lower the sensitivity of mammography. No significant masses, calcifications, or other findings are seen in either breast. There has been no significant interval change. IMPRESSION: NEGATIVE There is no mammographic evidence of malignancy. A 1 year screening mammogram is recommended. Sujey morrow/albina:11/01/2021 11:20:48 Mine Supervisor(s): Aramis Bermeo)(Jose), [facility] letter sent: Normal over 40 Mammogram BI-RADS: 1 Negative Multiple national specialty organizations have released breast cancer screening guidelines for women at average risk for developing breast cancer - guidelines that are based on both evidence and opinion, yet differ on when to start and how often to screen for breast cancer. With representation from Breast Imaging, Internal Medicine, Women's Health, Family Medicine, and Medical/Surgical Oncology, the [facility] has carefully reviewed the data and reached the following consensus: 1) All women should engage in shared decision-making with their providers to decide when to start and how often to screen; 2) All women should have the opportunity to start screening mammography at age 40; 3) For women ages 45-55, we recommend annual screening mammograms; 4) For women ages 55 and over, we support both the transition from an annual to a biennial interval if this aligns more with patient's values and preferences, or continuation with annual screening; 5) All women should discuss with their providers when to stop screening mammograms. Molecular Physicist: Albina Transcribe Date/Time: Nov 01 2021 10:40A Dictated by : SUJEY HERNÁNDEZ MD This examination was interpreted and the report reviewed and electronically signed by: SUJEY HERNÁNDEZ MD on Nov 01 2021 11:20AM EST [id number] Normal [facility] ED NOTEon 09-08-2021 ED NOTE HNO ID: [id number] Author: Gallo Mcqueen RN Service: Emergency Medicine Author Type: Registered Nurse Type: ED Notes Filed: 09/07/2021 10:15 PM Note Text: Discharge instructions explained. Instructed to return for any worsening symptoms or concerns. Pt verbalizes understanding of. Normal [facility] ED NOTE HNO ID: [id number] Author: Gallo Mcqueen RN Service: Emergency Medicine Author Type: Registered Nurse Type: ED Notes Filed: 09/07/2021 10:00 PM Note Text: dental tech at bedside. Normal [facility] XR TOE 3V AP/LAT/OBL RTon XR TOE 3V AP/LAT/OBL RT * * *Final Report* * * DATE OF EXAM: Sep 07 2021 10:12PM BRX [id number] - XR TOE 3V AP/LAT/OBL RT / PROCEDURE REASON: Dislocation, toe * * * * Physician Interpretation * * * * EXAMINATION: XR TOE 3V AP/LAT/OBL RT CLINICAL HISTORY: Dislocation, toe, Fracture of toe Technique: XR TOE 3V AP/LAT/OBL RT -- RIGHT with 3 views on 3 images Comparison: None RESULT: No acute fracture or osseous lesions are identified. Joint spaces are preserved. Soft tissue structures are unremarkable. IMPRESSION: No acute findings Molecular Physicist: YONAS Transcribe Date/Time: Sep 07 2021 10:18P Dictated by : ALEX MENDOZA MD This examination was interpreted and the report reviewed and electronically signed by: ALEX MENDOZA MD on Sep 07 2021 10:20PM EST [id number] Normal [facility] ED NOTEon 09-07-2021 ED NOTE HNO ID: [id number] Author: Gallo Mcqueen RN Service: Emergency Medicine Author Type: Registered Nurse Type: ED Notes Filed: 09/07/2021 9:58 PM Note Text: Pt presents with C/O right 5th toe injury. Pt states my horse stepped on it (toe). Ecchymosis noted to toe. Pt reports continuous burning ache rated 5-8/10. Pt reports she has been icing toe intermittently. Pt reports she took Tylenol for pain - last dose approximately 60 minutes ago. MSPs intact. Capillary refill brisk. Normal [facility] ED PROV NOTEon 09-07-2021 ED PROV NOTE HNO ID: [id number] Author: Ryland Go PA-C Service: ? Author Type: Physician Associate Producer Type: ED Provider Notes Filed: 09/07/2021 10:07 PM Note Text: ED Provider Note Patient Name: Jocelyne Villagomez : 1975 SERVICE DATE: 09/07/21 History Patient presents with: Toe Injury: Right 5th toe. Pt states My horse stepped on it. 45-year-old female presents to the ED today for right toe injury. Patient states that this morning her horse stepped on her right little toe and since then she has been having 8 out of 10 pain especially with ambulation. Patient denies any other complaints. History reviewed. No pertinent past medical history. History reviewed. No pertinent surgical history. No family history on file. Social History Tobacco Use - Smoking status: Never Smoker - Smokeless tobacco: Never Used Vaping Use - Vaping Use: Never used Substance and Sexual Activity - Alcohol use: Not on file - Drug use: Not on file - Sexual activity: Not on file ALLERGIES Allergen Reactions - Aspirin Shortness of Breath - Penicillins Shortness of Breath Review of Systems Constitutional: Negative for chills and fever. HENT: Negative for drooling, ear discharge, hearing loss, mouth sores, postnasal drip, sneezing and voice change. Eyes: Negative for photophobia and visual disturbance. Respiratory: Negative for chest tightness, shortness of breath and wheezing. Cardiovascular: Negative for chest pain and palpitations. Gastrointestinal: Negative for abdominal distention, abdominal pain, anal bleeding, blood in stool, constipation, diarrhea, nausea, rectal pain and vomiting. Genitourinary: Negative for dysuria, flank pain, hematuria, pelvic pain, vaginal bleeding and vaginal discharge. Musculoskeletal: Positive for arthralgias. Negative for neck pain and neck stiffness. Skin: Positive for wound. Negative for color change. Neurological: Negative for dizziness, numbness and headaches. Psychiatric/Behaviora l: Negative for agitation and confusion. The patient is not hyperactive. Physical Exam Vitals [09/07/21 2152] BP Pulse Temp Temp src Resp SpO2 Weight Height 134/82 80 37.1 ?C (98.7 ?F) Oral 18 98 % 67.1 kg (148 lb) 1.626 m (5' 4) Physical Exam Constitutional: Appearance: She is well-developed. HENT: Head: Normocephalic and atraumatic. Eyes: Conjunctiva/sclera: Conjunctivae normal. Cardiovascular: Rate and Rhythm: Normal rate and regular rhythm. Pulmonary: Effort: Pulmonary effort is normal. No respiratory distress. Breath sounds: Normal breath sounds. No wheezing. Abdominal: General: Bowel sounds are normal. Palpations: Abdomen is soft. Musculoskeletal: General: Swelling, tenderness and signs of injury present. Normal range of motion. Cervical back: Normal range of motion and neck supple. Feet: Comments: Swelling and bruising over the right little toe. No laceration. No obvious deformity. Skin: General: Skin is warm and dry. Neurological: Mental Status: She is alert and oriented to person, place, and time. Psychiatric: Behavior: Behavior normal. Diagnostic Testing ED Labs Ordered and Reviewed - No data to display Procedures ED Course / Clinical Impression Clinical Impressions as of 09/07/212206 Injury of toe on right foot, initial encounter Pain of toe of right foot See podiatry [facility] meds See pcp Return to ed if sx worsen MDM / Disposition / Plan The medical record is reviewed.Triage note is reviewed and incorporated.The nursing note is reviewed and consistent with patient's history and physical exam findings. The vital signs were reviewed and the vital signs are : BP 134/82 Pulse 80 Temp 37.1 ?C (98.7 ?F) (Oral) Resp 18 Ht 162.6 cm (5' 4) Wt 67.1 kg (148 lb) SpO2 98% BMI 25.40 kg/m? This is a 45 year old female who presents to the ED with a chief complaint of toe injury whose symptoms are controlled in the ED with postop shoe, emi tape. The plan is to obtain x-ray. Based on patient's pmh, chief complaint and physical exam findings, differential diagnoses include but is not limited, fracture versus dislocation XR directly visualized by me and independently interpreted by Radiologist showed: pending upon sign out ASSESSMENT AND PLAN: 45-year-old female presents to the ED today for right little toe injury. Patient's horse stepped on her right little toe and since this morning she has been having pain. On exam there is tenderness to palpation over the right little toe and bruising. Patient denies any other injuries or complaints. DISCHARGE INSTRUCTIONS The patient has remained hemodynamically stable throughout the entire ED visit and is without objective evidence or laboratory findings for acute process requiring urgent intervention or hospitalization. The patient and/or family had all the tests and diagnosis explained to them and were given both verbal and written d (more content not included)... Normal [facility] SCREENINGon 03-23-2020 [facility] SCREENING Final Report DATE OF EXAM: Mar 23 2020 3:52PM AWMarjorie 0581 - [facility] SCREENING / PROCEDURE REASON: screening Physician Interpretation #[id number] - [facility] SCREENING BILATERAL DIGITAL SCREENING MAMMOGRAM WITH CAD: 03/23/2020 HISTORY: Screening / Screening Mammogram-Patient reports NO symptoms. RESULT: TECHNIQUE: The study was acquired using full field digital technology and interpreted from soft copy. Current study was also evaluated with a Computer Aided Detection (CAD). Comparison is made to exams dated: 09/10/2018 [facility] and 07/18/2016 mammogram - [facility]. The tissue of both breasts is heterogeneously dense. This may lower the sensitivity of mammography. No significant masses, calcifications, or other findings are seen in either breast. IMPRESSION: NEGATIVE There is no mammographic evidence of malignancy. A 1 year screening mammogram is recommended. Mari garcia/albina:03/23/2020 15:55:10 Mine Supervisor(s): Salina Mckay(Zara)(M), [facility] letter sent: Normal over 40 Mammogram BI-RADS: 1 Negative Multiple national specialty organizations have released breast cancer screening guidelines for women at average risk for developing breast cancer - guidelines that are based on both evidence and opinion, yet differ on when to start and how often to screen for breast cancer. With representation from Breast Imaging, Internal Medicine, Women's Health, Family Medicine, and Medical/Surgical Oncology, the [facility] has carefully reviewed the data and reached the following consensus: 1) All women should engage in shared decision-making with their providers to decide when to start and how often to screen; 2) All women should have the opportunity to start screening mammography at age 40; 3) For women ages 45-55, we recommend annual screening mammograms; 4) For women ages 55 and over, we support both the transition from an annual to a biennial interval if this aligns more with patient's values and preferences, or continuation with annual screening; 5) All women should discuss with their providers when to stop screening mammograms. Molecular Physicist: Albina Transcribe Date/Time: Mar 23 2020 3:35P Dictated by : MARI OSBORN MD This examination was interpreted and the report reviewed and electronically signed by: MARI OSBORN MD on Mar 23 2020 3:55PM EST Normal [facility] Encounters Encounter Date Encounter Type Care Provider Facility Start: 08-30-2024 End: 08-30-2024 ambulatory Brooke Cifuentes Facility:[facility] Start: 05-20-2024 End: 05-20-2024 ambulatory Richelle Labor Facility:[facility] Start: 01-14-2024 End: 01-14-2024 ambulatory Richelle Labor Facility:[facility] Start: 11-01-2021 Documentation procedure Mammog flor Coordinator [facility] Start: 11-01-2021 Letter encounter Mammography Coordinator [facility] ANCILLARY AREA NOT LISTED Start: 11-01-2021 End: 11-01-2021 Subsequent hospital visit by physician Screen Mammo [facility] RADIO MAMMO REFLECTIONS [facility] Comment on above: Screening Start: 09-07-2021 ambulatory Room Emergency Radiolog y Comment on above: Radio Gen RMP Start: 09-07-2021 Patient encounter procedure Room Emergency [facility] Procedures Date Procedure Procedure Detail Performing Clinician Start: 11-01-2021 End: 11-01-2021 Screening mammography bi 2-view breast inc cad Betty Schroeder MD Work Phone: Start: 03-23-2020 Mammography Room Emerg ency Plan of Treatment Date Care Activity Detail Author Start: 11-01-2022 Mammography MAMMOGRAM [facility] Start: 01-02-2022 Influenza vaccination C [facility] Start: 03-23-2021 Mammography MAMMOGRAM [facility] Start: 01-01-2020 COLOGUARD (FIT-DNA) COLOGUARD (FIT-D NA) [facility] Start: 01-01-2020 Colonoscopy COLONOSCOPY [facility] Start: 01-01-2020 COLORECTAL CANCER SCREENING COLORECTAL CANCER SCREENING [facility] Start: 01-01-[address] COLONOGRAPHY [facility] Start: 01-01-2020 DIABETES SCREEN DIABETES SCREEN [facility] Start: 01-01-2020 FECAL OCCULT BLOOD FECAL OCCULT BLOO D [facility] Start: 01-01-2020 LIPID SCREEN LIPID SCREEN [facility] Start: 01-01-2020 SIGMOIDOSCOPY SIGMOIDOSCOPY [facility] Start: 2004 HPV TESTING HPV TESTING [facility] Start: 01-01-1996 PAP TESTING PAP TESTING [facility] Start: 1993 Urine microalbumin profile DTAP,TDAP ,TD (1 - Tdap) [facility] Start: 1992 HEPATITIS C SCREENING HEPATITIS C SC REENING [facility] Start: 1992 HIV SCREENING HIV SCREENING [facility] Start: 1986 Adult depression scr eening assessment DEPRESSION SCREENING [facility] Start: 01-01-1980 COVID-19 VACCINE (1) COVID-19 VACCIN E (1) [facility] Start: 07-02-1975 COVID-19 VACCINE (#1) COVID-19 VACCI NE (#1) [facility] Payers Date Payer Category Payer Self-pay 2023 Unknown [id number] 2021 [id number] 2021-Present [phone] [address] [place] [address] [facility] [id number] Unknown [id number] Unknown [id number] Unknown [id number] Social History Date Type Detail Facility Start: 10-17-2019 Tobacco smoking stat us [facility] Never smoked tobacco [facility] [facility] Start: 10-17-2019 Tobacco use and exposure Smoke less tobacco non-user [facility] Start: 1975 Sex Assigned At Not on file [facility] Start: 08-28-2021 End: 11-01-2021 Exposure to SARS-CoV-2 (event) Not sure [facility] Note 11-01-2021 Letter - Mammography Coordinator - 11/01/2021 11:20 AM EDT Note Date & Type Note Facility 11-01-2021 Miscellaneous Notes [address] [address] November 01, 2021 PID: [id number] Jocelyne Villagomez [address] [place] [address] Dear Ms. Villagomez, We are pleased to inform you that the results of your recent breast imaging exam on 11/01/2021 are normal. Early detection of cancer is very important. We also understand recommendations regarding breast cancer screening are controversial. Please discuss with your primary care provider which strategy is best for you and whether a mammogram is right for you. Your imaging studies and report will be kept on file at [facility] as part of your permanent medical record and are available for your continuing care. Thank you for allowing us to help in meeting your health care needs. Sincerely, Dr. Hernández Interpreting Radiologist [facility] (Normal over 40) documented in this encounter [facility] Progress note 09-08-2021 Note Date & Type Note Facility 09-08-2021 Note HNO ID: [id number] Author: RT Elo(R) Service: ? Author Type: Sports Journalist Type: Progress Notes Filed: 09/07/2021 10:14 PM Note Text: Radiology Service Progress Note PATIENT NAME: Jocelyne Villagomez DATE OF SERVICE: September 07, 2021 TIME: 10:13 PM PATIENT IDENTITY VERIFICATION COMPLETED USING TWO (2) IDENTIFIERS: Name and Date of confirmed by patient verbally. FALL SCREENING: Has the patient had 2 falls in the last year or 1 fall with injury or currently using an Ambulatory Assistive Device (Walker, Cane, Wheelchair, Crutches, etc.)? Emergency Room Patient: Screened in ED PATIENT GENDER DATA: Female. status: : No status: NO. PATIENT RELEVANT IMPLANT DATA REVIEWED: Not Applicable RADIOLOGY DEPARTMENT: General X-ray: Exam(s) Completed: Lower Extremity X-Ray(s): Toes, Right 5th PERIPHERAL IV DATA: Not applicable SIGNED BY: RT Elo(Zara) September 07, 2021 10:13 PM [facility] History of Present illness Narrative 09-07-2021 RT Elo(R) - 09/07/2021 10:13 PM EDT Note Date & Type Note Facility 09-07-2021 History of Presen t illness Narrative Radiology Service Progress Note PATIENT NAME: Jocelyne Villagomez DATE OF SERVICE: September 07, 2021 TIME: 10:13 PM PATIENT IDENTITY VERIFICATION COMPLETED USING TWO (2) IDENTIFIERS: Name and Date of confirmed by patient verbally. FALL SCREENING: Has the patient had 2 falls in the last year or 1 fall with injury or currently using an Ambulatory Assistive Device (Walker, Cane, Wheelchair, Crutches, etc.)? Emergency Room Patient: Screened in ED PATIENT GENDER DATA: Female. status: : No status: NO. PATIENT RELEVANT IMPLANT DATA REVIEWED: Not Applicable RADIOLOGY DEPARTMENT: General X-ray: Exam(s) Completed: Lower Extremity X-Ray(s): Toes, Right 5th PERIPHERAL IV DATA: Not applicable SIGNED BY: RT Elo(Zara) September 07, 2021 10:13 PM documented in this encounter [facility] Summary Purpose Family History No Family History Records FoundNo Family History Records FoundNo Family History Records FoundNo Family History Records Found Advance Directives No Advanced Directives Records FoundDocuments on File Type Date Recorded Patient Practical Nurse Expl anation Advance Directive(s) 09/07/2021 10:21 PM Additional Source Comments INFORMATION SOURCE (unrecogn ized section and content) DATE CREATED AUTHOR 03/24/2020 [facility] DATE CREATED AUTHOR AUTHOR'S ORGANIZ ATION 09/08/2021 [facility] DATE CREATED AUTHOR AUTHOR'S ORGANIZ ATION 11/04/2021 [facility] DATE CREATED AUTHOR AUTHOR'S ORGANIZ ATION 09/06/2024 [facility] Source Comments (unrecognize d section and content) In the event this informatio n is protected by the Federal Confidentiality of Alcohol and Drug Abuse Patient Records regulations: The Federal rules restrict any use of the information to criminally investigate or prosecute any alcohol or drug abuse patient.[facility] the event this information is protected by the [facility] Confidentiality of Alcohol and Drug Abuse Patient Records regulations: The Federal rules restrict any use of the information to criminally investigate or prosecute any alcohol or drug abuse patient.[facility] the event this information is protected by the Federal Confidentiality of Alcohol and Drug Abuse Patient Records regulations: The Federal rules restrict any use of the information to criminally investigate or prosecute any alcohol or drug abuse patient.[facility] Reason for Visit (unrecogniz ed section and content) Reason Comments Radio Gen RMP Reason Comments Radiology Mammogram Specialty Diagnoses / Procedures Referred By Contac t Referred To Contact [facility] Diagnoses Screening Procedures SCREENING MAMMOGRAPHY BI 2-VIEW BREAST INC CAD Mammogram Screening Betty Schreoder MD [address] [place] [id number] [facility] [address] [place] [address] Referral ID Status Reason Start Date Expiration Date Visits Requested Visits Authorized [id number] Denied OON/Self Pay Override Financial Clearance Required - OON Payor OON Notification Letter Clearance Not Met - Admin/Laminating Machine Operator/D irector Advise to Postpone/Resched ule or Not Proceed 10/07/2021 12/06/2021 1 0 Care Teams (unrecognized sec tion and content) Is Consultant Relationship Specialty Start Date End Date Marj Grier [address] [facility] [address] [address] [address] PCP - General Family Practice 08/18/18 Is Consultant Relationship Specialty Start Date End Date Marj Grier [address] [facility] [place] [address] PCP - General Family Practice 08/18/18 FOR RECORDS PERTAINING TO PATIENTS WHO ARE OR HAVE BEEN ENROLLED IN A CHEMICAL DEPENDENCY/SUBSTANCEABUSE PROGRAM, SOME INFORMATION MAY BE OMITTED. This clinical summary was aggregated from multiple sources. Caution should be exercised in using it in the provision of clinical care. This summary normalizes information from multiple sources, and as a consequence, information in this document may materially change the coding, format and clinical context of patient data. In addition, data may be omitted in some cases. CLINICAL DECISIONS SHOULD BE BASED ON THE PRIMARY CLINICAL RECORDS. [facility] [employer], [facility]. provides no warranty or guarantee of the accuracy or completeness of information in this document.
== END | disposition home or self-care (01) ==
LOC: OPBI 11:56
PROVIDERS: PCP Family Medicine; Referring Provider Family Medicine; Visit Provider Family Medicine
DX: Z12.31 Encounter for screening mammogram for malignant neoplasm of breast (principal)
CPT/HCPCS: 77063; 77067